=== PATIENT | female | born 1980 | race Two or more races ===

== ENCOUNTER 2024-04-12 15:19 | Outpatient (CLI) | payer OTHER | END 2024-04-12 15:30 | disposition home or self-care (01) | LOC: RAD 15:19 | PROVIDERS: ATTEND Orthopaedic Surgery | DX: M25.521 Pain in right elbow (principal) ==

== ENCOUNTER 2024-05-16 13:37 | Outpatient (CLI) | payer OTHER | END 2024-05-16 13:48 | disposition home or self-care (01) | LOC: NUCLEAR 13:37 | PROVIDERS: ATTEND Orthopaedic Surgery | DX: M81.0 Age-related osteoporosis without current pathological fracture (principal) ==

== ENCOUNTER 2024-07-01 10:25 | Outpatient (CLI) | payer OTHER | END 2024-07-01 10:38 | disposition home or self-care (01) | LOC: SONOGRAMA 10:25 | PROVIDERS: ATTEND Internal Medicine Endocrinology, Diabetes & Metabolism | DX: E04.2 Nontoxic multinodular goiter (principal) ==